=== PATIENT | male | born 1980 | race Caucasian/White ===

== ENCOUNTER → 2018-05-26 | Outpatient (CLI) | payer OTHER ==
[2018-05-26 16:36] LABS: EOS # 0.2 (0.04-0.40); EOS % 2.6 % (0.0-4.0); HEMATOCRIT 42.7 % (42.0-52.0); HEMOGLOBIN 14.2 g/dL (13.5-18.0); LYMPH# 2.1 (1.50-4.00); MEAN CELL VOLUME 87 fl (78-100); MEAN CORPUSCULAR HEMOGLOBIN 29 pg (27-31); MEAN CORPUSCULAR HGB CONC 33 g/dL (33-37); MEAN PLATELET VOLUME 10.9 fl (7.4-10.4); MONO # 0.7 (0.20-0.80); NEU # 3.2 (1.40-6.50); PLATELET COUNT 192 K/mm3 (130-400); RED BLOOD COUNT 4.89 M/mm3 (4.20-5.60); RED CELL DISTRIBUTION WIDTH 13.9 % (11.5-14.5); WHITE BLOOD COUNT 6.2 K/mm3 (4.8-10.8)
[2018-05-26 17:09] LABS: ALBUMIN 4.7 g/dL (3.5-5.0); ALT/SGPT 32 U/L (21-72); AST-SGOT 29 U/L (17-59); BUN/CREATININE RATIO 15.1 (6.0-26.0); CALCIUM 8.9 mg/dL (8.4-10.2); CARBON DIOXIDE 32 mmol/L (22-30); GLUCOSE 83 mg/dL (75-110); POTASSIUM 4.4 mmol/L (3.6-5.0); SODIUM 143 mmol/L (137-145); TOTAL BILIRUBIN 0.4 mg/dL (0.2-1.3); TOTAL PROTEIN 8.7 g/dL (6.3-8.2)
== END ==
LOC: LAB 16:27
PROVIDERS: Internal Medicine
DX: M25.521 Pain in right elbow (principal)

== ENCOUNTER 2018-08-04 12:00 | Outpatient (RCR) | payer OTHER | END 2018-08-04 12:30 | disposition home or self-care (01) | LOC: OT 12:00 | DX: M77.11 Lateral epicondylitis, right elbow (principal) ==

== ENCOUNTER → 2019-09-07 | Outpatient (CLI) | payer OTHER ==
[2019-09-07 16:10] LABS: EOS # 0.1 (0.04-0.40); EOS % 2.2 % (0.0-4.0); HEMATOCRIT 43.7 % (42.0-52.0); HEMOGLOBIN 14.6 g/dL (13.5-18.0); LYMPH# 1.8 (1.50-4.00); MEAN CELL VOLUME 87 fl (78-100); MEAN CORPUSCULAR HEMOGLOBIN 29 pg (27-31); MEAN CORPUSCULAR HGB CONC 33 g/dL (33-37); MEAN PLATELET VOLUME 10.9 fl (7.4-10.4); MONO # 0.5 (0.20-0.80); NEU # 3.1 (1.40-6.50); PLATELET COUNT 214 K/mm3 (130-400); RED BLOOD COUNT 5.04 M/mm3 (4.20-5.60); RED CELL DISTRIBUTION WIDTH 13.3 % (11.5-14.5); WHITE BLOOD COUNT 5.5 K/mm3 (4.8-10.8)
[2019-09-07 16:15] LABS: POTASSIUM 4.3 mmol/L (3.5-5.1)
[2019-09-07 16:16] LABS: ALBUMIN 4.6 g/dL (3.5-5.0)
[2019-09-07 16:17] LABS: CALCIUM 9.9 mg/dL (8.3-10.5)
[2019-09-07 16:18] LABS: TOTAL PROTEIN 8.6 g/dL (6.4-8.3)
[2019-09-07 16:20] LABS: TOTAL BILIRUBIN 0.3 mg/dL (0.2-1.2)
== END ==
LOC: LAB 15:57
PROVIDERS: Internal Medicine
DX: Z00.00 Encounter for general adult medical examination without abnormal findings (principal)

== ENCOUNTER → 2019-11-16 | Outpatient (CLI) | payer OTHER ==
[2019-11-16 15:32] LABS: ALBUMIN 4.4 g/dL (3.5-5.0)
[2019-11-16 15:35] LABS: TOTAL PROTEIN 7.6 g/dL (6.4-8.3)
[2019-11-16 15:37] LABS: TOTAL BILIRUBIN 0.5 mg/dL (0.2-1.2)
[2019-11-16 15:40] LABS: DIRECT BILIRUBIN 0.2 mg/dL (0.0-0.5)
== END ==
LOC: LAB 15:12
PROVIDERS: Internal Medicine
DX: E78.2 Mixed hyperlipidemia (principal)

== ENCOUNTER → 2020-10-22 | Outpatient (CLI) | payer OTHER ==
[2020-10-22 15:32] LABS: EOS # 0.2 (0.04-0.40); EOS % 2.7 % (0.0-4.0); HEMOGLOBIN 14.5 g/dL (13.5-18.0); MEAN CELL VOLUME 87 fl (78-100); MEAN CORPUSCULAR HEMOGLOBIN 29 pg (27-31); MEAN CORPUSCULAR HGB CONC 34 g/dL (33-37); MEAN PLATELET VOLUME 10.8 fl (7.4-10.4); MONO # 0.7 (0.20-0.80); PLATELET COUNT 200 K/mm3 (130-400); RED BLOOD COUNT 4.96 M/mm3 (4.20-5.60); RED CELL DISTRIBUTION WIDTH 13.2 % (11.5-14.5); WHITE BLOOD COUNT 5.9 K/mm3 (4.8-10.8)
[2020-10-22 15:41] LABS: ALBUMIN 4.6 g/dL (3.5-5.0); POTASSIUM 4.1 mmol/L (3.5-5.1)
[2020-10-22 15:42] LABS: CALCIUM 9.9 mg/dL (8.3-10.5)
[2020-10-22 15:44] LABS: TOTAL PROTEIN 8.2 g/dL (6.4-8.3)
[2020-10-22 15:45] LABS: TOTAL BILIRUBIN 0.5 mg/dL (0.2-1.2)
[2020-10-22 15:50] LABS: MAGNESIUM 1.93 mg/dL (1.60-2.60)
[2020-10-22 16:31] LABS: ERYTHROCYTE SEDIMENTATION RATE 8 mm/hr (0-15)
== END ==
LOC: LAB 15:22
PROVIDERS: Internal Medicine
DX: Z00.00 Encounter for general adult medical examination without abnormal findings (principal)

== ENCOUNTER → 2023-10-26 | Outpatient (CLI) | payer OTHER ==
[2023-10-26 12:24] LABS: BASO # 0.02 K/mm3 (0.02-0.10); EOS # 0.13 K/mm3 (0.04-0.40); EOS % 2.9 % (0.0-4.0); HEMATOCRIT 43.6 % (42.0-52.0); HEMOGLOBIN 14.2 g/dL (13.5-18.0); LYMPH# 1.75 K/mm3 (1.50-4.00); MEAN CELL VOLUME 91 fl (78-100); MEAN CORPUSCULAR HEMOGLOBIN 30 pg (27-31); MEAN CORPUSCULAR HGB CONC 33 g/dL (33-37); MEAN PLATELET VOLUME 10.5 fl (7.4-10.4); MONO # 0.49 K/mm3 (0.20-0.80); NEU # 2.02 K/mm3 (1.40-6.50); PLATELET COUNT 192 K/mm3 (130-400); RED BLOOD COUNT 4.77 M/mm3 (4.20-5.60); RED CELL DISTRIBUTION WIDTH 13.1 % (11.5-14.5); WHITE BLOOD COUNT 4.4 K/mm3 (4.8-10.8)
[2023-10-26 12:29] LABS: ALBUMIN 4.5 g/dL (3.5-5.0)
[2023-10-26 12:30] LABS: CALCIUM 9.4 mg/dL (8.3-10.5)
[2023-10-26 12:32] LABS: TOTAL PROTEIN 7.6 g/dL (6.4-8.3)
[2023-10-26 13:14] LABS: TOTAL BILIRUBIN 0.6 mg/dL (0.2-1.2)
== END ==
LOC: LAB 12:11
PROVIDERS: Internal Medicine
DX: Z00.00 Encounter for general adult medical examination without abnormal findings (principal); Z23 Encounter for immunization; M77.12 Lateral epicondylitis, left elbow; Z12.5 Encounter for screening for malignant neoplasm of prostate; E55.9 Vitamin D deficiency, unspecified; K90.9 Intestinal malabsorption, unspecified

== ENCOUNTER → 2024-11-16 | Outpatient (CLI) | payer OTHER ==
[2024-11-16 15:47] LABS: BASO # 0.02 K/mm3 (0.02-0.10); EOS % 2.2 % (0.0-4.0); HEMATOCRIT 43.3 % (42.0-52.0); HEMOGLOBIN 14.8 g/dL (13.5-18.0); LYMPH# 1.56 K/mm3 (1.50-4.00); MEAN CELL VOLUME 90 fl (78-100); MEAN CORPUSCULAR HEMOGLOBIN 31 pg (27-31); MEAN CORPUSCULAR HGB CONC 34 g/dL (33-37); MEAN PLATELET VOLUME 10.6 fl (7.4-10.4); MONO # 0.41 K/mm3 (0.20-0.80); NEU # 2.48 K/mm3 (1.40-6.50); PLATELET COUNT 202 K/mm3 (130-400); RED BLOOD COUNT 4.83 M/mm3 (4.20-5.60); RED CELL DISTRIBUTION WIDTH 12.8 % (11.5-14.5); WHITE BLOOD COUNT 4.6 K/mm3 (4.8-10.8)
[2024-11-16 15:52] LABS: ALBUMIN 4.7 g/dL (3.5-5.0)
[2024-11-16 15:53] LABS: CALCIUM 9.9 mg/dL (8.3-10.5)
[2024-11-16 15:56] LABS: TOTAL BILIRUBIN 0.5 mg/dL (0.2-1.2)
== END ==
LOC: LAB 15:35
PROVIDERS: Internal Medicine
DX: Z00.00 Encounter for general adult medical examination without abnormal findings (principal); Z12.5 Encounter for screening for malignant neoplasm of prostate